=== PATIENT | female | born 1965 | race American Indian/Alaskan Native ===

== ENCOUNTER 2016-08-10 19:40 | Emergency (ER) | payer OTHER ==
[2016-08-11] MEDS ORDERED: TORADOL IM ONE (02:33)
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
[2016-08-11 06:52] VITALS: BP 102/63
== END 2016-08-11 03:10 | disposition home or self-care (01) ==
LOC: ED 19:40
DX: M26.629 Arthralgia of temporomandibular joint, unspecified side (principal); V89.2XXA Person injured in unspecified motor-vehicle accident, traffic, initial encounter; Y93.9 Activity, unspecified; Y99.9 Unspecified external cause status; Y92.410 Unspecified street and highway as the place of occurrence of the external cause
CPT/HCPCS: 99283; J1885